=== PATIENT | male | born 1975 | race Two or more races ===

== ENCOUNTER 2021-10-06 14:51 | Emergency (ER) | payer OTHER ==
[2021-10-06 14:58] VITALS: BP 129/64; PULSE 64; TEMP 98; BMI 27.4
[2021-10-06] MEDS ORDERED: KETOROLAC TROMETHAMINE 15 MG/ML VIAL IM ONE (17:06)
[2021-10-06] MEDS ORDERED: ACETAMINOPHEN 325 MG TABLET (FP) PO ONE (17:18)
[2021-10-06] MEDS ORDERED: ACETAMINOPHEN 325 MG TABLET (FP) ONE (17:46)
[2021-10-06] MEDS ORDERED: KETOROLAC TROMETHAMINE 30 MG/1 ML VIAL ONE (17:47)
== END 2021-10-06 22:16 | disposition left against medical advice (07) ==
LOC: JER 14:51
PROC: 3E0233Z Introduction of Anti-inflammatory into Muscle, Percutaneous Approach (ICD-10-PCS; principal; 2021-10-06)
DX: M79.602 Pain in left arm (principal)
CPT/HCPCS: 93005; 93010; 99284-25

== ENCOUNTER 2023-03-23 11:27 | Emergency (ER) | payer OTHER ==
[2023-03-23 11:58] VITALS: BP 119/78; PULSE 80; RESP 16; TEMP 98; BMI 23.0
== END 2023-03-23 11:45 | disposition left against medical advice (07) ==
LOC: FER 11:27
DX: R51.9 Headache, unspecified (principal)
CPT/HCPCS: 99281-25